=== PATIENT | male | born 1940 | race Caucasian/White ===

== ENCOUNTER 2018-06-28 03:17 | Inpatient (IN) | payer MEDICARE ==
[~2018-06-28] VITALS: Ht 177.8 cm; Wt 85.8 kg
[~2018-06-28 03:17] MED LIST: 'TENORMIN50 MG PO; ASPIR-LOW81 MG PO; PRILOSEC20 MG PO; SIMVASTATIN10 MG PO; VICODIN ES 7501 TAB PO
[2018-06-28 03:20] VITALS: BP 160/44
[2018-06-28 04:00] VITALS: BP 152/68
[2018-06-28 06:03] LABS: BILIRUBIN NEGATIVE (NEGATIVE); BLOOD NEGATIVE (NEGATIVE); CLARITY SL CLOUDY (CLEAR); COLOR YELLOW (YELLOW); GLUCOSE NEGATIVE (NEGATIVE); KETONE NEGATIVE (NEGATIVE); LEUKO ESTERASE NEGATIVE (NEGATIVE); NITRITE NEGATIVE (NEGATIVE); PH 7.5 (5.0-9.0); SPECIFIC GRAVITY 1.015 (1.005-1.030); UROBILINOGEN 0.2 E.U./dl (0.2-1.0)
[2018-06-28 06:15] LABS: BACTERIA 2+; EPITHELIAL CELLS 0-2
[2018-06-28 06:35] VITALS: BP 153/65
[2018-06-28 06:47] LABS: HEMATOCRIT 40.6 % (42.0-52.0); HEMOGLOBIN 14.2 g/dl (14.0-18.0); MEAN CORPUSCULAR HGB 32.9 pg (27.0-31.0); MEAN PLATELET VOLUME 9.1 fl (9.6-12.3); PLATELET COUNT AUTOMATED 164 10*3/uL (130-400); RED BLOOD COUNT 4.32 10*6/uL (4.50-5.90); RED CELL DISTRI WIDTH 12.5 % (0-14.5); WHITE BLOOD COUNT 12.1 10*3/uL (4.8-10.8)
[2018-06-28 07:01] LABS: ALKALINE PHOSPHATASE 52 U/L (45-117); BUN 24 mg/dl (7-24); CHLORIDE 107 mmol/L (98-107); CHOLESTEROL 101 mg/dL (<200); CREATININE 1.21 mg/dL (0.70-1.30); HDL CHOLESTEROL 34 mg/dl (40-60); LDL CHOLESTEROL 55 mg/dL (9-159); PHOSPHOROUS 2.7 mg/dL (2.5-4.9); POTASSIUM 3.8 mmol/L (3.5-5.1); SGOT/AST 22 IU/L (3-35); SGPT/ALT 32 U/L (12-78); SODIUM 142 mmol/L (136-145); TOTAL PROTEIN 6.7 gm/dL (6.4-8.2); TRIGLYCERIDES 58 mg/dl (<150); VLDL CHOLESTEROL 12 mg/dL (6-40)
[2018-06-28 07:02] LABS: FREE T4 1.02 ng/dl (0.76-1.46)
[2018-06-28 07:14] LABS: ACT PARTIAL THROMBO TIME 23.1 SECONDS (20.8-31.5)
[2018-06-28 07:19] LABS: PLATELET SUFFICIENCY NORMAL (NORMAL); TOTAL CELLS COUNTED 100 #CELLS
[2018-06-28] MEDS ORDERED: COREG6.25 MG PO (07:42)
[2018-06-28] MEDS ORDERED: PANTOPRAZOLE SO40 MG PO (07:43)
[2018-06-28] MEDS ORDERED: CENTRUM SILVER1 EAC3 PO (07:44)
[2018-06-28] MEDS ORDERED: ZOCOR20 MG PO (07:45)
[2018-06-28] MEDS ORDERED: PREDNISOLONE ACE5 M5 OP (07:46)
[2018-06-28] MEDS ORDERED: ECONOPRED PLUS10 M1 OPH (07:47)
[2018-06-28] MEDS ORDERED: ZESTORETIC 10-1 EACH PO (07:48)
[2018-06-28 08:05] LABS: VITAMIN D, 25-HYDROXY 44.1 ng/mL (30-100)
[2018-06-28 12:00] VITALS: BP 140/60
[2018-06-28 16:00] VITALS: BP 152/74
[2018-06-28 20:00] VITALS: BP 120/64
[2018-06-29] VITALS: BP 123/67
[2018-06-29 08:00] VITALS: BP 124/58
[2018-06-29] MEDS ORDERED: CYCLOBENZAPRINE5 M3 PO (11:29)
== END 2018-06-29 13:26 | disposition home or self-care (01) | DRG 552 ==
LOC: ED 03:17 → EDHOLD 06:13 → 4E 06:13
PROVIDERS: Emergency Medicine Emergency Medical Services; Internal Medicine Nephrology
DX: M48.061 Spinal stenosis, lumbar region without neurogenic claudication (principal); B02.30 Zoster ocular disease, unspecified; M53.86 Other specified dorsopathies, lumbar region; I25.10 Atherosclerotic heart disease of native coronary artery without angina pectoris; K21.9 Gastro-esophageal reflux disease without esophagitis; R00.1 Bradycardia, unspecified; H26.491 Other secondary cataract, right eye; I10 Essential (primary) hypertension; E78.5 Hyperlipidemia, unspecified; R31.21 Asymptomatic microscopic hematuria; D72.829 Elevated white blood cell count, unspecified; R73.9 Hyperglycemia, unspecified; Z88.2 Allergy status to sulfonamides; Z95.5 Presence of coronary angioplasty implant and graft; Z79.82 Long term (current) use of aspirin; Z79.899 Other long term (current) drug therapy; I25.2 Old myocardial infarction

== ENCOUNTER 2019-08-12 11:04 | Inpatient (IN) | payer MEDICARE ==
[~2019-08-12] VITALS: Ht 177.8 cm; Wt 83.6 kg
[2019-08-12 11:04] VITALS: BP 131/68
[~2019-08-12 11:04] MED LIST changes: +CENTRUM SILVER1 EAC3 PO; +COREG6.25 MG PO; +CYCLOBENZAPRINE5 M3 PO; +ECONOPRED PLUS10 M1 OPH; +PANTOPRAZOLE SO40 MG PO; +PREDNISOLONE ACE5 M5 OP; +ZESTORETIC 10-1 EACH PO; +ZOCOR20 MG PO
[2019-08-12 11:30] LABS: BASO % 0.4 % (0.0-1.0); EOS # 0.3 10*3/uL (0.0-0.4); EOS % 3.3 % (1.0-4.0); HEMATOCRIT 41.3 % (42.0-52.0); HEMOGLOBIN 14.2 g/dl (14.0-18.0); LYMPH # 4.5 10*3/uL (1.3-4.4); LYMPH % 43.5 % (27.0-41.0); MEAN CELL VOLUME 95.6 fl (80.0-94.0); MEAN CORPUSCULAR HGB 32.9 pg (27.0-31.0); MEAN CORPUSCULAR HGB CONC 34.4 g/dl (33.0-37.0); MEAN PLATELET VOLUME 9.9 fl (9.6-12.3); MONO # 0.7 10*3/uL (0.1-1.0); MONO % 7.1 % (3.0-9.0); NEUT # 4.7 10*3/uL (2.3-7.9); NEUT % 45.2 % (47.0-73.0); PLATELET COUNT AUTOMATED 163 10*3/uL (130-400); RED BLOOD COUNT 4.32 10*6/uL (4.50-5.90); RED CELL DISTRI WIDTH 12.9 % (0-14.5); WHITE BLOOD COUNT 10.4 10*3/uL (4.8-10.8)
[2019-08-12 11:41] LABS: ACT PARTIAL THROMBO TIME 22.5 SECONDS (20.0-32.1); INTERNATIONAL NORM RATIO 0.9 (2.0-3.5)
[2019-08-12 11:47] LABS: ALBUMIN 3.8 gm/dl (3.1-4.5); ALKALINE PHOSPHATASE 54 U/L (45-117); BUN 18 mg/dl (7-24); CHLORIDE 106 mmol/L (98-107); CREATININE 1.27 mg/dL (0.70-1.30); LIPASE 125 U/L (73-393); POTASSIUM 4.3 mmol/L (3.5-5.1); SGOT/AST 27 IU/L (3-35); SGPT/ALT 38 U/L (12-78); SODIUM 139 mmol/L (136-145); TOTAL PROTEIN 6.6 gm/dL (6.4-8.2)
[2019-08-12 11:56] LABS: TROPONIN I < 0.015 ng/ml (<0.045)
[2019-08-12 12:53] VITALS: BP 147/72
--- NOTE | 2019-08-12 13:38 | NUR ---
RESIDENT MD IN SEEING PT AT THIS TIME.PT BEING ADMITTED TO IM.--VERN KING RN
[2019-08-12 13:50] VITALS: BP 156/62
--- NOTE | 2019-08-12 13:50 | NUR ---
A 78, admitted to , under the services of BIRD Mcdonough DO with a diagnosis of SYNCOPE. Chief complaint is SYNCOPAL EPISODE. Patient arrived via ambulance from ER. Monitor applied. Initial assessment completed. Vital signs taken and recorded. BIRD MCDONOUGH DO notified of admission to the unit. Orders received. See assessment for past medical history, medications and allergies. Patient and/or family oriented to unit. [facility] visitation policy reviewed. Clothing/patient valuable form completed. ANEL MOHAN
[2019-08-12] MEDS ORDERED: LIFE-LINE GLUC480 ML PO (14:20)
--- NOTE | 2019-08-12 14:41 | NUR ---
DR RAMSAY MADE AWARE THAT PT HAS ARRIVED AND MED REC IS UPDATED.
[2019-08-12 16:00] VITALS: BP 130/60
--- NOTE | 2019-08-12 16:17 | NUR ---
ORTHO'S DONE, WHICH WERE NEGATIVE, PT ASYMPTOMATIC. DR GOMEZ PRESENT AT THIS TIME.
--- NOTE | 2019-08-12 16:20 | NUR ---
KEITH JACINTO MADE AWARE OF NEW CONSULT.
[2019-08-12 20:00] VITALS: BP 150/71
--- NOTE | 2019-08-12 21:35 | NUR ---
24 HOUR CHART CHECK COMPLETE.
[2019-08-13] VITALS: BP 114/62
[2019-08-13 06:19] LABS: BASO # 0.1 10*3/uL (0.0-0.1); BASO % 0.5 % (0.0-1.0); EOS # 0.4 10*3/uL (0.0-0.4); HEMATOCRIT 38.9 % (42.0-52.0); LYMPH # 3.8 10*3/uL (1.3-4.4); LYMPH % 41.5 % (27.0-41.0); MEAN CORPUSCULAR HGB 32.1 pg (27.0-31.0); MEAN CORPUSCULAR HGB CONC 33.4 g/dl (33.0-37.0); MONO # 1.1 10*3/uL (0.1-1.0); MONO % 11.8 % (3.0-9.0); NEUT # 3.9 10*3/uL (2.3-7.9); NEUT % 41.9 % (47.0-73.0); PLATELET COUNT AUTOMATED 160 10*3/uL (130-400); RED BLOOD COUNT 4.05 10*6/uL (4.50-5.90); RED CELL DISTRI WIDTH 12.9 % (0-14.5); WHITE BLOOD COUNT 9.3 10*3/uL (4.8-10.8)
[2019-08-13 06:30] LABS: ACT PARTIAL THROMBO TIME 25.1 SECONDS (20.0-32.1)
[2019-08-13 06:36] LABS: ALBUMIN 3.4 gm/dl (3.1-4.5); BUN 19 mg/dl (7-24); CHLORIDE 110 mmol/L (98-107); CHOLESTEROL 108 mg/dL (<200); CREATININE 1.15 mg/dL (0.70-1.30); PHOSPHOROUS 3.3 mg/dL (2.5-4.9); SGOT/AST 19 IU/L (3-35); SGPT/ALT 32 U/L (12-78); SODIUM 142 mmol/L (136-145); TRIGLYCERIDES 99 mg/dl (<150); VLDL CHOLESTEROL 20 mg/dL (6-40)
[2019-08-13 06:43] LABS: ALKALINE PHOSPHATASE 48 U/L (45-117); FREE T4 0.89 ng/dl (0.76-1.46); HDL CHOLESTEROL 27 mg/dl (40-60); LDL CHOLESTEROL 61 mg/dL (9-159); THYROID STIM HORMONE (HS) 0.948 uIU/ml (0.358-4.75)
[2019-08-13 07:39] LABS: VITAMIN D, 25-HYDROXY 46.3 ng/mL (30-100)
[2019-08-13 08:00] VITALS: BP 130/60
--- NOTE | 2019-08-13 08:57 | NUR ---
DR JENKINS MADE AWARE OF NEGATIVE ORTHOSTATIC BP. PT ASYMPTOMATIC.
--- NOTE | 2019-08-13 10:30 | NUR ---
Vascular Nurse in to talk to patient. Patient states lives at home with his . There are 12 steps in the home. Physician: Dr. Anthony Mendes Pharmacy: [facility] Home health services: none Patient's level of ADLs: INDEPENDENT Patient has working utilities: yes DME: none Follow-up physician's appointment after d/c: will be made by the hospitalist nurse director upon discharge Does patient want to access PORTAL?: no Discharge plan discussed with patient. He lives at home with his . He is independent in his ADLs and ambulation. Discussed home health care services and he denies any home needs at this time. When medically stable he will be discharged to home. His will provide transportation on discharge. YADY TAO
[2019-08-13 12:00] VITALS: BP 144/59
[2019-08-13] MEDS ORDERED: CARVEDILOL3.125 MG PO (15:14)
--- NOTE | 2019-08-13 16:36 | NUR ---
Discharge instructions reviewed with patient/family. Patient receptive and verbalizes understanding. Follow-up care arranged. Written instructions given to patient/family. IV site and secured entrance monitor removed. ANEL MOHAN
== END 2019-08-13 16:36 | disposition home or self-care (01) | DRG 641 ==
LOC: ED 11:04 → EDHOLD 12:43 → 4E 12:43
PROVIDERS: Emergency Medicine; ADMIT Internal Medicine
DX: E86.0 Dehydration (principal); R00.1 Bradycardia, unspecified; R73.9 Hyperglycemia, unspecified; E78.5 Hyperlipidemia, unspecified; I25.10 Atherosclerotic heart disease of native coronary artery without angina pectoris; E83.41 Hypermagnesemia; I10 Essential (primary) hypertension; T44.7X5A Adverse effect of beta-adrenoreceptor antagonists, initial encounter; K21.9 Gastro-esophageal reflux disease without esophagitis; I25.2 Old myocardial infarction; Z80.6 Family history of leukemia; Z80.41 Family history of malignant neoplasm of ovary; Z88.2 Allergy status to sulfonamides; Z79.82 Long term (current) use of aspirin; Y92.89 Other specified places as the place of occurrence of the external cause

== ENCOUNTER 2020-01-13 15:56 | Emergency (ER) | payer MEDICARE ==
[~2020-01-13] VITALS: Ht 177.8 cm; Wt 81.6 kg
[~2020-01-13 15:56] MED LIST changes: +CARVEDILOL3.125 MG PO; +LIFE-LINE GLUC480 ML PO
[2020-01-13 17:14] LABS: HEMATOCRIT 41.6 % (42.0-52.0); MEAN CELL VOLUME 94.5 fl (80.0-94.0); MEAN CORPUSCULAR HGB CONC 33.9 g/dl (33.0-37.0); MEAN PLATELET VOLUME 9.5 fl (9.6-12.3); PLATELET COUNT AUTOMATED 180 10*3/uL (130-400); RED CELL DISTRI WIDTH 12.7 % (0-14.5); WHITE BLOOD COUNT 10.3 10*3/uL (4.8-10.8)
[2020-01-13 17:31] LABS: ALBUMIN 3.7 gm/dl (3.1-4.5); ALKALINE PHOSPHATASE 52 U/L (45-117); BUN 19 mg/dl (7-24); CHLORIDE 109 mmol/L (98-107); CREATININE 1.07 mg/dL (0.70-1.30); LIPASE 101 U/L (73-393); POTASSIUM 3.8 mmol/L (3.5-5.1); SGOT/AST 35 IU/L (3-35); SGPT/ALT 35 U/L (12-78); SODIUM 141 mmol/L (136-145); TOTAL PROTEIN 6.6 gm/dL (6.4-8.2)
[2020-01-13 17:32] LABS: ACT PARTIAL THROMBO TIME 25.6 SECONDS (20.0-32.1); TROPONIN I < 0.015 ng/ml (<0.045)
[2020-01-13 17:36] LABS: ATYPICAL LYMPHS 1 % (0-0); TOTAL CELLS COUNTED 100 #CELLS
[2020-01-13 17:37] LABS: PLATELET SUFFICIENCY NORMAL (NORMAL)
[2020-01-13] MEDS ORDERED: ZOFRAN4 MG PO (19:04)
== END 2020-01-13 19:10 | disposition home or self-care (01) ==
LOC: ED 15:56
PROVIDERS: Emergency Medicine
DX: R11.0 Nausea (principal); R10.9 Unspecified abdominal pain; K21.9 Gastro-esophageal reflux disease without esophagitis; E78.5 Hyperlipidemia, unspecified; I25.10 Atherosclerotic heart disease of native coronary artery without angina pectoris; I25.2 Old myocardial infarction; E78.00 Pure hypercholesterolemia, unspecified; Z88.2 Allergy status to sulfonamides; Z79.899 Other long term (current) drug therapy; Z79.82 Long term (current) use of aspirin

== ENCOUNTER → 2020-10-23 | Outpatient (CLI) | payer MEDICARE ==
[~2020-10-23] MED LIST changes: +CARDIOVID PLUS1 EACH PO; +TAMSULOSIN HCL0.4 MG PO; +ZOFRAN4 MG PO
== END | disposition home or self-care (01) ==
LOC: ORTHO 01:31
PROVIDERS: ATTEND Orthopaedic Surgery
DX: M17.12 Unilateral primary osteoarthritis, left knee (principal)

== ENCOUNTER → 2020-12-24 | Day surgery (SDC) | payer MEDICARE ==
[2020-12-21 13:08] VITALS: BP 152/67
[2020-12-21 14:34] LABS: BUN 22 mg/dl (7-24); CHLORIDE 109 mmol/L (98-107); CREATININE 1.08 mg/dL (0.70-1.30); POTASSIUM 4.4 mmol/L (3.5-5.1); SODIUM 143 mmol/L (136-145)
[~2020-12-24] VITALS: Ht 177.8 cm; Wt 81.6 kg
[2020-12-24 06:30] VITALS: BP 119/74
[2020-12-24 08:07] VITALS: BP 138/55
[2020-12-24 08:22] VITALS: BP 130/70
[2020-12-24 08:37] VITALS: BP 131/63
== END | disposition home or self-care (01) ==
LOC: SDC 12-21 12:30
PROVIDERS: ATTEND Orthopaedic Surgery
DX: M65.841 Other synovitis and tenosynovitis, right hand (principal); M17.12 Unilateral primary osteoarthritis, left knee; I10 Essential (primary) hypertension; K21.9 Gastro-esophageal reflux disease without esophagitis; Z95.5 Presence of coronary angioplasty implant and graft; I25.10 Atherosclerotic heart disease of native coronary artery without angina pectoris; E78.00 Pure hypercholesterolemia, unspecified; I25.2 Old myocardial infarction; Z88.2 Allergy status to sulfonamides; Z79.899 Other long term (current) drug therapy

== ENCOUNTER 2021-01-30 16:56 | Emergency (ER) | payer MEDICARE ==
[2021-01-30] MEDS ORDERED: AUGMENTIN 875875 MG PO ×2 (17:25→18:31)
== END 2021-01-30 18:30 | disposition home or self-care (01) ==
LOC: ED 16:56
DX: S61.452A Open bite of left hand, initial encounter (principal); I25.2 Old myocardial infarction; Z88.2 Allergy status to sulfonamides; Z79.899 Other long term (current) drug therapy; Z79.82 Long term (current) use of aspirin; Z95.5 Presence of coronary angioplasty implant and graft; Z90.89 Acquired absence of other organs; W55.01XA Bitten by cat, initial encounter; Y93.89 Activity, other specified; Y92.098 Other place in other non-institutional residence as the place of occurrence of the external cause; Y99.8 Other external cause status

== ENCOUNTER 2021-10-30 09:46 | Emergency (ER) | payer MEDICARE ==
[~2021-10-30] VITALS: Ht 177.8 cm; Wt 87.1 kg
[~2021-10-30 09:46] MED LIST changes: +AUGMENTIN 875875 MG PO
[2021-10-30 10:58] LABS: HEMATOCRIT 40.7 % (42.0-52.0); MEAN CELL VOLUME 92.7 fl (80.0-94.0); MEAN CORPUSCULAR HGB 32.3 pg (27.0-31.0); MEAN CORPUSCULAR HGB CONC 34.9 g/dl (33.0-37.0); MEAN PLATELET VOLUME 9.6 fl (9.6-12.3); PLATELET COUNT AUTOMATED 167 10*3/uL (130-400); RED BLOOD COUNT 4.39 10*6/uL (4.50-5.90); WHITE BLOOD COUNT 17.8 10*3/uL (4.8-10.8)
[2021-10-30 10:59] LABS: MANUAL DIFF REFLEX YES
[2021-10-30 11:18] LABS: ALKALINE PHOSPHATASE 59 U/L (45-117); BUN 29 mg/dl (7-24); CHLORIDE 109 mmol/L (98-107); CREATININE 1.73 mg/dL (0.70-1.30); POTASSIUM 3.8 mmol/L (3.5-5.1); SGOT/AST 21 IU/L (3-35); SGPT/ALT 28 U/L (12-78); SODIUM 141 mmol/L (136-145); TOTAL PROTEIN 6.9 gm/dL (6.4-8.2)
[2021-10-30 11:30] LABS: ATYPICAL LYMPHS 1 % (0-0); TOTAL CELLS COUNTED 100 #CELLS
[2021-10-30 11:31] LABS: OVALOCYTES FEW; PLATELET SUFFICIENCY NORMAL (NORMAL); POLYCHROMASIA SLIGHT
[2021-10-30 12:53] LABS: BILIRUBIN Negative (Negative); BLOOD Negative (Negative); CLARITY Clear (Clear); COLOR Yellow (Yellow); GLUCOSE Negative (Negative); KETONE Negative (Negative); LEUKO ESTERASE 1+ (Negative); NITRITE Negative (Negative); PH 7.5 (4.5-8.0); UROBILINOGEN 0.2 E.U./dl (0.0-1.0)
[2021-10-30 13:07] LABS: BACTERIA TRACE; EPITHELIAL CELLS 0-2; MUCOUS 1+
[2021-10-30] MEDS ORDERED: HYDROCODONE-AC1 EAC1 PO (13:09)
[2021-10-30] MEDS ORDERED: ZOFRAN4 MG PO ×2 (13:10→13:55)
== END 2021-10-30 13:34 | disposition home or self-care (01) ==
LOC: ED 09:46
PROVIDERS: Student in an Organized Health Care Education/Training Program
DX: N13.2 Hydronephrosis with renal and ureteral calculous obstruction (principal); Z88.2 Allergy status to sulfonamides; Z79.899 Other long term (current) drug therapy; Z79.82 Long term (current) use of aspirin; Z90.89 Acquired absence of other organs; Z98.890 Other specified postprocedural states

== ENCOUNTER 2022-12-17 08:26 | Emergency (ER) | payer MEDICARE ==
[~2022-12-17] VITALS: Ht 182.8 cm; Wt 86.2 kg
[~2022-12-17 08:26] MED LIST changes: +HYDROCODONE-AC1 EAC1 PO
[2022-12-17] MEDS ORDERED: [UNRECOGNIZED DRUG - OTHER] PO (08:53)
[2022-12-17] MEDS ORDERED: KETOROLAC10 MG PO (10:53)
[2022-12-17] MEDS ORDERED: PREDNISONE20 M1 PO (10:53)
== END 2022-12-17 10:54 | disposition home or self-care (01) ==
LOC: ED 08:26
DX: M54.31 Sciatica, right side (principal); M79.604 Pain in right leg; I25.10 Atherosclerotic heart disease of native coronary artery without angina pectoris; I25.2 Old myocardial infarction; K21.9 Gastro-esophageal reflux disease without esophagitis; E78.00 Pure hypercholesterolemia, unspecified; Z88.2 Allergy status to sulfonamides; Z90.89 Acquired absence of other organs; Z98.890 Other specified postprocedural states